=== PATIENT | male | born 1995 | race Caucasian/White ===

== ENCOUNTER 2025-04-06 17:44 | Emergency (ER) | payer MEDICAID ==
[~2025-04-06] VITALS: Ht 172.7 cm; Wt 91.0 kg
[2025-04-06 18:13] VITALS: O2SAT 99
[2025-04-06] MEDS ORDERED: LIDOCAINE HCL 1% 20ML VIAL INFIL ONE (19:15)
[2025-04-06] MEDS: IBUPROFEN 600MG TABLET PO ONE (20:15)
[2025-04-06] MEDS: TETANUS, DIPHTHERIA, PERTUSSIS VAC/PF 0.5ML (>10YR OLD) IM ONE (20:16)
[2025-04-06] MEDS ORDERED: IBUP-1455 MT (21:31)
[2025-04-06] MEDS: BACITRACIN ZINC OINT UDPKT TOP ONE (21:59)
[2025-04-06 22:01] VITALS: BP 148/93; PULSE 100; RESP 16; TEMP 36.8; O2SAT 99
== END 2025-04-06 22:01 | disposition home or self-care (01) ==
LOC: ER 17:44
DX: S61.412A Laceration without foreign body of left hand, initial encounter (principal); W27.8XXA Contact with other nonpowered hand tool, initial encounter; Y93.89 Activity, other specified; Y92.89 Other specified places as the place of occurrence of the external cause; Y99.8 Other external cause status
CPT/HCPCS: 90715; 12002; 90471; 99283; J2003; Z7610 ×2; A6449

== ENCOUNTER 2025-04-15 10:43 | Emergency (ER) | payer MEDICAID ==
[~2025-04-15] VITALS: Ht 165.1 cm; Wt 118.0 kg
[~2025-04-15 10:43] MED LIST: IBUP-1455 MT
[2025-04-15 10:44] VITALS: O2SAT 100
[2025-04-15 10:59] VITALS: BP 150/96; PULSE 75; RESP 18; TEMP 36.9; O2SAT 100
== END 2025-04-15 11:08 | disposition home or self-care (01) ==
LOC: ER 10:43
DX: S61.419D Laceration without foreign body of unspecified hand, subsequent encounter (principal); X58.XXXD Exposure to other specified factors, subsequent encounter
CPT/HCPCS: 99281